=== PATIENT | male | born 1975 | race Caucasian/White ===

== ENCOUNTER → 2020-12-07 | Outpatient (CLI) | payer MEDICARE, MEDICAID ==
[~2020-12-07] VITALS: Ht 200.7 cm; Wt 113.4 kg
[~2020-12-07] MED LIST: BACL20TA PO; BISA-51 OR; CHOL20007 OR; DAPA1TAB4 PO; DIVA500T2 PO; ERTU1TAB3 PO; FAMO-68 PO; GABA-339 PO; GABA300C10 PO; IBUP800T27 PO; METF-372 PO; METF500S PO; METO25TA5 PO; NORT25CA PO; OXY10CRT PO; SENN8.6C PO
== END | disposition home or self-care (01) ==
LOC: LAB 15:30 → EDSTATUS 12-11 09:30
PROVIDERS: ATTEND Orthopaedic Surgery
DX: Z01.818 Encounter for other preprocedural examination (principal); M61.58 Other ossification of muscle, other site; E11.9 Type 2 diabetes mellitus without complications; F41.9 Anxiety disorder, unspecified; F17.200 Nicotine dependence, unspecified, uncomplicated; Z68.28 Body mass index [BMI] 28.0-28.9, adult; Z98.890 Other specified postprocedural states; Z79.899 Other long term (current) drug therapy; Z20.822 Contact with and (suspected) exposure to COVID-19

== ENCOUNTER 2021-01-29 06:38 | Inpatient (IN) | payer MEDICARE, MEDICAID ==
[2021-01-29] VITALS (12 sets, daily range): BP systolic 87–107; BP diastolic 60–74
[~2021-01-29] VITALS: Ht 195.6 cm; Wt 126.0 kg
[~2021-01-29 06:38] MED LIST changes: -BISA-51 OR; -ERTU1TAB3 PO; -FAMO-68 PO; -GABA300C10 PO; -METF500S PO; -NORT25CA PO; -OXY10CRT PO
[2021-01-29] MEDS ORDERED: ceFAZolin 1GM/50ML 100 ML IV ONE ×2 (07:02→14:04)
[2021-01-29] MEDS ORDERED: TRANEXAMIC ACID 20 ML ONE (07:09)
[2021-01-29] MEDS ORDERED: TETRACAINE 1% INJ 2 ML VIAL IJ ONE (07:26)
[2021-01-29] MEDS ORDERED: fentaNYL CITRATE 100 MCG/2 ML VL ONE (07:27)
[2021-01-29] MEDS ORDERED: MIDAZOLAM HCL 1MG/1ML-2 ML VIAL ONE ×3 (07:28→08:15)
[2021-01-29] MEDS: VANCOMYCIN HCL 1000 MG VL ONE ×2 (07:40→10:15)
[2021-01-29] MEDS ORDERED: PROPOFOL 10 MG/ML 20 ML IV ONE (07:53)
[2021-01-29] MEDS ORDERED: DexAMETHasone SOD PHOS 10MG/1ML VIAL INJ ONE (07:53)
[2021-01-29] MEDS ORDERED: MORPHINE SULF(PF) 0.5MG/ML 10ML VIAL ONE (07:53)
[2021-01-29] MEDS ORDERED: DexAMETHasone SOD PHOS 10MG/1ML VIAL INJ IV PRN (09:15)
[2021-01-29] MEDS ORDERED: ePHEDrine SULFATE 50 MG/ML AMP IV PRN (09:15)
[2021-01-29] MEDS ORDERED: diphenhdrAMINE HCL 50 MG/1 ML VL IV PRN (09:15)
[2021-01-29] MEDS ORDERED: NALOXONE HCL 0.4 MG/ML VIAL IV PRN (09:15)
[2021-01-29] MEDS ORDERED: ACCU-CHEK COMFORT CURVE STRIP VI ONE (09:15)
[2021-01-29] MEDS ORDERED: NALBUPHINE HCL 10 MG/1ml INJECTION SUBCUT ONE (09:15)
[2021-01-29] MEDS ORDERED: ONDANSETRON HCL 4 MG/2 ML VIAL IV PRN ×2 (09:15→10:45)
[2021-01-29] MEDS ORDERED: ACETAMINOPHEN 325 MG TAB PO PRN (10:45)
[2021-01-29] MEDS: LACTATED RINGER'S 1,000 ML IV SCH ×2 (10:45→20:45)
[2021-01-29] MEDS: HYDROmorphone HCL 2 MG/ML VL IV PRN ×4 (10:52→12:10)
[2021-01-29] MEDS: KETOROLAC TROMETH 30 MG/ML 1ML VIAL ONE ×2 (11:33→11:35)
[2021-01-29] MEDS ORDERED: KETOROLAC TROMETH 30 MG/ML 1ML VIAL IV ONE (11:35)
[2021-01-29] MEDS ORDERED: BACLOFEN 10 MG TAB PO SCH (14:00)
[2021-01-29] MEDS ORDERED: GABAPENTIN 300 MG CAP PO SCH (14:00)
[2021-01-29] MEDS: ceFAZolin 1GM 2 GM in D5W 5% 100 ML IV SCH ×2 (15:49→21:39)
[2021-01-29] MEDS: BACLOFEN 10 MG TAB PO SCH ×2 (16:14→21:34)
[2021-01-29] MEDS: metFORMIN HYDROCHLORIDE 500 MG TAB PO SCH (17:59)
[2021-01-29] MEDS: INDOMETHACIN 25 MG CAP PO SCH (21:34)
[2021-01-29] MEDS: GABAPENTIN 300 MG CAP PO SCH (21:35)
[2021-01-29] MEDS: SENNA 8.6 MG TAB PO SCH (21:35)
[2021-01-29] MEDS: METOPROLOL TARTRATE 25 MG TAB PO SCH (21:40)
[2021-01-30] VITALS (20 sets, daily range): BP systolic 89–133; BP diastolic 55–84
[2021-01-30 06:33] LABS: Basophils # (auto) 0 10 ^3/uL (0-0.2); Basophils % (auto) 0.5 % (0.0-2.0); Eosinophils # (auto) 0.1 10 ^3/uL (0-0.8); Eosinophils % (auto) 1.1 % (0.0-7.0); Hematocrit 29.9 % (41.0-53.0); Hemoglobin 10.5 g/dL (13.5-17.5); Lymphocytes # (auto) 1.5 10 ^3/uL (0.4-5.4); Lymphocytes % (auto) 20.5 % (10.0-50.0); Mean Corpuscular Hemoglobin 29.1 pg (28.0-32.0); Mean Corpuscular Volume 83.1 fL (80.0-100.0); Monocytes # (auto) 0.9 10 ^3/uL (0-1.3); Monocytes % (auto) 11.9 % (0.0-12.0); Neutrophils # (auto) 4.9 10 ^3/uL (1.6-8.6); Nucleated Red Blood Cells % 0.1 %; Platelet Count (auto) 191 10^3/uL (140-450); Red Cell Distribution Width 14.9 % (11.8-14.3); White Blood Cell 7.5 10^3/uL (4.4-10.8)
[2021-01-30] MEDS: BACLOFEN 10 MG TAB PO SCH ×3 (06:39→22:15)
[2021-01-30] MEDS: INDOMETHACIN 25 MG CAP PO SCH ×3 (06:39→22:15)
[2021-01-30] MEDS: GABAPENTIN 300 MG CAP PO SCH ×3 (06:39→22:14)
[2021-01-30] MEDS: LACTATED RINGER'S 1,000 ML IV SCH ×2 (06:45→17:29)
[2021-01-30 06:52] LABS: Calcium 7.6 mg/dL (8.5-10.1); Potassium 4.4 mmol/L (3.5-5.1)
[2021-01-30] MEDS: metFORMIN HYDROCHLORIDE 500 MG TAB PO SCH ×2 (07:00→17:30)
[2021-01-30] MEDS: DAPAGLIFLOZIN 5 MG TAB PO SCH (09:43)
[2021-01-30] MEDS: HYDROcodone-ACET 10/325MG TAB PO PRN ×3 (09:43→22:15)
[2021-01-30] MEDS: ENOXAPARIN SOD 40 MG/0.4 ML SYRINGE SC SCH (09:44)
[2021-01-30] MEDS: METOPROLOL TARTRATE 25 MG TAB PO SCH ×2 (09:44→22:14)
[2021-01-30] MEDS ORDERED: metFORMIN HYDROCHLORIDE 500 MG TAB PO SCH (10:00)
[2021-01-30] MEDS: SENNA 8.6 MG TAB PO SCH (22:15)
[2021-01-30] MEDS ORDERED: HYDROmorphone HCL 2 MG/ML VL IV PRN (23:45)
[2021-01-31] MEDS: LACTATED RINGER'S 1,000 ML IV SCH (02:45)
[2021-01-31] MEDS: HYDROcodone-ACET 10/325MG TAB PO PRN ×2 (03:38→22:06)
[2021-01-31 05:00] VITALS: BP 98/56
[2021-01-31] MEDS: BACLOFEN 10 MG TAB PO SCH ×3 (06:15→21:46)
[2021-01-31] MEDS: GABAPENTIN 300 MG CAP PO SCH ×3 (06:16→21:46)
[2021-01-31] MEDS: INDOMETHACIN 25 MG CAP PO SCH ×2 (06:19→13:35)
[2021-01-31] MEDS: metFORMIN HYDROCHLORIDE 500 MG TAB PO SCH ×2 (06:20→17:44)
[2021-01-31 06:30] LABS: Basophils # (auto) 0.1 10 ^3/uL (0-0.2); Basophils % (auto) 1.1 % (0.0-2.0); Eosinophils # (auto) 0.2 10 ^3/uL (0-0.8); Eosinophils % (auto) 5.1 % (0.0-7.0); Hemoglobin 8.3 g/dL (13.5-17.5); Lymphocytes % (auto) 20.4 % (10.0-50.0); Mean Corpuscular Hemoglobin 28.7 pg (28.0-32.0); Mean Corpuscular Hgb Conc. 34.4 g/dL (32.0-36.0); Mean Corpuscular Volume 83.5 fL (80.0-100.0); Monocytes # (auto) 0.4 10 ^3/uL (0-1.3); Monocytes % (auto) 8.5 % (0.0-12.0); Neutrophils # (auto) 3.2 10 ^3/uL (1.6-8.6); Neutrophils % (auto) 64.9 % (37.0-80.0); Platelet Count (auto) 149 10^3/uL (140-450); Red Blood Cells 2.87 10^6/uL (4.5-5.90); Red Cell Distribution Width 15.1 % (11.8-14.3); White Blood Cell 4.9 10^3/uL (4.4-10.8)
[2021-01-31] MEDS ORDERED: PROPOFOL 10 MG/ML 20 ML IV ONE (07:06)
[2021-01-31 09:00] VITALS: BP 100/66
[2021-01-31] MEDS: DAPAGLIFLOZIN 5 MG TAB PO SCH (09:35)
[2021-01-31] MEDS: METOPROLOL TARTRATE 25 MG TAB PO SCH ×2 (09:35→21:57)
[2021-01-31] MEDS: ENOXAPARIN SOD 40 MG/0.4 ML SYRINGE SC SCH (09:35)
[2021-01-31 13:00] VITALS: BP 103/61
[2021-01-31] MEDS ORDERED: ACETAMINOPHEN 325 MG TAB PO PRN (14:30)
[2021-01-31] MEDS: IBUPROFEN 800 MG TAB PO PRN (16:16)
[2021-01-31 17:00] VITALS: BP 107/62
[2021-01-31] MEDS: SENNA 8.6 MG TAB PO SCH (21:46)
[2021-01-31 22:00] VITALS: BP 146/70
[2021-02-01] MEDS: IBUPROFEN 800 MG TAB PO PRN ×2 (01:15→10:30)
[2021-02-01 05:00] VITALS: BP 103/62
[2021-02-01 06:21] LABS: Eosinophils # (auto) 0.3 10 ^3/uL (0-0.8); Eosinophils % (auto) 5.5 % (0.0-7.0); Hemoglobin 7.8 g/dL (13.5-17.5); Lymphocytes # (auto) 1.1 10 ^3/uL (0.4-5.4); Monocytes # (auto) 0.6 10 ^3/uL (0-1.3); Neutrophils # (auto) 3.8 10 ^3/uL (1.6-8.6); Red Cell Distribution Width 14.9 % (11.8-14.3); White Blood Cell 5.9 10^3/uL (4.4-10.8)
[2021-02-01 06:24] LABS: Basophils # (auto) 0.1 10 ^3/uL (0-0.2); Basophils % (auto) 0.9 % (0.0-2.0); Hematocrit 22.2 % (41.0-53.0); Lymphocytes % (auto) 18.9 % (10.0-50.0); Mean Corpuscular Hemoglobin 29.5 pg (28.0-32.0); Mean Corpuscular Hgb Conc. 35.3 g/dL (32.0-36.0); Mean Corpuscular Volume 83.8 fL (80.0-100.0); Monocytes % (auto) 10.2 % (0.0-12.0); Neutrophils % (auto) 64.5 % (37.0-80.0); Nucleated Red Blood Cells % 0.1 %; Platelet Count (auto) 164 10^3/uL (140-450); Red Blood Cells 2.65 10^6/uL (4.5-5.90)
[2021-02-01] MEDS: GABAPENTIN 300 MG CAP PO SCH ×2 (06:25→15:01)
[2021-02-01] MEDS: BACLOFEN 10 MG TAB PO SCH ×2 (06:25→15:02)
[2021-02-01] MEDS: metFORMIN HYDROCHLORIDE 500 MG TAB PO SCH ×2 (06:35→18:02)
[2021-02-01 09:00] VITALS: BP 122/77
[2021-02-01] MEDS: METOPROLOL TARTRATE 25 MG TAB PO SCH (10:29)
[2021-02-01] MEDS: DAPAGLIFLOZIN 5 MG TAB PO SCH (10:29)
[2021-02-01] MEDS: ENOXAPARIN SOD 40 MG/0.4 ML SYRINGE SC SCH (10:29)
[2021-02-01 13:00] VITALS: BP 118/70
[2021-02-01 13:46] VITALS: BP 121/76
[2021-02-01] MEDS ORDERED: IBUPROFEN 800 MG TAB PO SCH (14:00)
[2021-02-01 16:52] VITALS: BP 103/63
== END 2021-02-01 21:05 | disposition home health service (06) | DRG 481 ==
LOC: SUR 06:38 → TELE 10:45 → TELE-WESTW 14:22
PROVIDERS: ADMIT Orthopaedic Surgery; ATTEND Orthopaedic Surgery
PROC: 0SBB0ZZ Excision of Left Hip Joint, Open Approach (ICD-10-PCS; principal; 2021-01-29 07:47)
DX: S72.002A Fracture of unspecified part of neck of left femur, initial encounter for closed fracture (principal); S82.002A Unspecified fracture of left patella, initial encounter for closed fracture; G82.20 Paraplegia, unspecified; D62 Acute posthemorrhagic anemia; M25.852 Other specified joint disorders, left hip; M24.562 Contracture, left knee; W18.39XA Other fall on same level, initial encounter; M24.561 Contracture, right knee; Z74.01 Bed confinement status; Z83.3 Family history of diabetes mellitus; Y93.89 Activity, other specified; Y92.89 Other specified places as the place of occurrence of the external cause; Y99.8 Other external cause status
CPT/HCPCS: 36415; 72170; 73501; 73560; 73700; 80048; 82962; 83036; 85025; 85049; 86850; 86900; 86901; 93005; 97163; 97530; A4565; G0378; J0690; J1100; J1642; J1885; J2250; J2405; J2704; J7060